=== PATIENT | male | born 1985 | race Two or more races ===

== ENCOUNTER 2021-06-19 10:11 | Outpatient (REF) | payer OTHER, MEDICAID, SELFPAY ==
[2021-06-19 11:45] LABS: Rheumatoid Factor < 15.0 IU/mL (<15.0)
[2021-06-19 11:57] LABS: Erythrocyte Sedimentation Rate 1 MM/HR (0-15)
[2021-06-19 12:01] LABS: Uric Acid 6.2 mg/dL (3.4-7.0)
[2021-06-20 17:42] LABS: Complement C3 97 mg/dL (82-185)
[2021-06-20 21:17] LABS: Lyme Abs Screen <0.90 index
[2021-06-21 13:16] LABS: Anti Nuclear Antibody Screen NEGATIVE (NEGATIVE)
[2021-06-24 10:41] LABS: HLA B27 Negative (Negative)
== END 2021-06-19 10:12 | disposition home or self-care (01) ==
LOC: HO.LAB 10:11
PROVIDERS: Visit Provider Psychiatry & Neurology Neurology
DX: M79.604 Pain in right leg (principal)
CPT/HCPCS: 36415; 84550; 85652; 86038; 86039; 86160; 86431; 86617; 86618; 86812

== ENCOUNTER 2021-07-13 18:53 | Outpatient (REF) | payer OTHER, MEDICAID, SELFPAY ==
--- NOTE | ~2021-07-13 | MR_ITS ---
EXAMINATION: MR CERVICAL SPINE WITHOUT CONTRAST CLINICAL INFORMATION: Hyperreflexia. Right leg pain. Neck pain. COMPARISON: None TECHNIQUE: MRI of the cervical spine was obtained using routine sequences without contrast. FINDINGS: VERTEBRAL BODIES AND PARASPINAL SOFT TISSUES: There is T1 low signal with heterogeneously hyperintense signal on STIR-weighted imaging in the T1 vertebral body which is indeterminate, possibly representing an atypical intraosseous hemangioma. The remainder of the marrow signal is homogeneous. There are no compression fractures or subluxations. The paraspinal soft tissues are normal. The facet joints are normal. The vertebral artery flow-voids are maintained. The imaged lung apices are grossly clear. CERVICOMEDULLARY JUNCTION AND VISUALIZED POSTERIOR FOSSA: The craniovertebral junction and imaged portions of the brain parenchyma appear normal. No cord signal abnormality or syrinx is seen. SPINAL LEVELS: C2-C3 and C3-C4: No disc pathology, central canal stenosis, or foraminal narrowing. C4-C5: Small central disc protrusion without central canal stenosis or foraminal narrowing. C5-C6: Shallow central disc protrusion. Patent central canal and foramina. C6-C7: Mild posterior disc bulge and annular fissure. No central canal stenosis or foraminal encroachment. C7-T1: No disc pathology. Patent central canal and foramina. MR/MR cervical spine wo con IMPRESSION: Mild spondylosis. Small disc protrusions at the C4-C5 and C5-C6 levels. No central canal stenosis. No cord compression or intramedullary signal change. Heterogeneous marrow signal in the T1 vertebral body which is indeterminate but may represent an atypical intraosseous hemangioma. This could be further assessed with followup targeted CT imaging.
== END 2021-07-13 18:54 | disposition home or self-care (01) ==
LOC: HO.MRI 18:53
PROVIDERS: Visit Provider Psychiatry & Neurology Neurology
DX: R29.2 Abnormal reflex (principal)
CPT/HCPCS: 72141